=== PATIENT | female | born 1985 | race Caucasian/White ===

== ENCOUNTER 2018-08-12 05:54 | Inpatient (IN) | payer OTHER, SELFPAY ==
[2018-08-09 13:32] VITALS: BMI 29.8
[2018-08-12] VITALS (20 sets, daily range): BP systolic 95–127; BP diastolic 50–78; PULSE 64–79; RESP 15–18; TEMP 36.3–36.6; O2SAT 95–100; BMI 41.5
[2018-08-12] MEDS: Lactated Ringers 1,000 ML 999 ML IV (05:55)
[2018-08-12 06:21] LABS: Absolute Lymphocyte Count 2.68 X10^3/ul (0.83-4.51); Absolute Neutrophil Count 6.1 X10^3/uL (2.0-7.7); Basophil# 0.02 X10^3/uL; Basophil% 0.2 % (0-1); Eosinophil# 0.08 X10^3/uL; Eosinophils% 0.8 % (0-5); Hematocrit 39.2 % (37-47); Hemoglobin 13.1 g/dl (12.0-15.0); Lymphocyte # 2.68 X10^3/ul (4.0); Lymphocyte % 27.9 % (19-41); Mean Corp Hgb Conc 33.4 g/gl (32-36); Mean Corpuscular Hgb 31.1 pg (27.0-32.0); Mean Corpuscular Volume 93.1 fL (81-99); Mean Platelet Vol. 9.7 fl (6.2-12.0); Monocyte# 0.72 X10^3/uL; Monocyte% 7.5 % (0-10); Neutrophil % 63.5 % (47-70); Platelet Count 267 K/mm3 (150-450); RBC Distribution Width CV 12.6 % (11.6-14.6); RBC Distribution Width SD 42.5 fl (35.1-43.9); Red Blood Count 4.21 M/mm3 (4.2-5.4); White Blood Count 9.6 K/mm3 (4.4-11.0)
[2018-08-12 06:22] LABS: POSITIVE COUNT NO; POSITIVE DIFFERENTIAL NO; POSITIVE MORPHOLOGY NO
[2018-08-12 06:26] LABS: International Normalized Ratio 0.9; Prothrombin Time (Protime)PT. 12.5 SECONDS (11.7-14.9)
[2018-08-12 06:27] LABS: Partial Thromboplast Time 28.9 Seconds (24.1-36.2)
[2018-08-12] MEDS: Lactated Ringers 1,000 ML 150 ML IV (06:45)
[2018-08-12] MEDS: Sodium Citrate/Citric Acid 30 ML UDC PO (07:11)
[2018-08-12] MEDS: Cefazolin 2 GM in 0.9% Normal Saline 100 ML IV (07:21)
[2018-08-12] MEDS: Oxytocin 30 units/NS 500 ml 30 UNITS/500 ML IV.SOLN 167 UNITS IV (07:58)
--- NOTE | 2018-08-12 08:29 | PCM.OB.CSR ---
- Problem List (1) 39 weeks gestation of Status: Acute Delivery Classification: Scheduled Final RYAN: 08/18/18 Final RYAN Source: [place] <20 weeks Gestational age: 39 Weeks and 1 Days Indications: 33yo admitted at 39 1/7wga for scheduled repeat section. Declined trial of labor. Risks, benefits, indications and alternatives were reviewed. Indications for : Repeat Elective Description of Procedure: The patient was taken to the operating room and spinal analgesia was administered. She is placed in a dorsal supine position with left lateral tilt. The perineum and abdomen were prepped and draped in sterile fashion. And the spinal was found to be adequate. A Pfannenstiel incision was made using a scalpel and brought down to incise the subcutaneous tissue and rectus fascia at the midline. Subcutaneous tissue was bluntly dissected off the fascia laterally. The fascial incision was dissected laterally and cephalad using curved Osborne scissors. The superior leaflet of the rectus fascia was grasped using Katie clamps and bluntly dissected and sharply dissected from the underlying rectus muscle. In a similar fashion the inferior rectus fascia was dissected from the underlying muscle. The rectus muscles were bluntly at the midline. The peritoneum was identified and entered [sharply]. The bladder blade was placed into the abdomen and the vesicouterine peritoneal fold identified. The fold was incised and a bladder flap created. Bladder blade was then repositioned to the abdomen. A low transverse hysterotomy was made using the [Metzenbaum scissors] to level of the membranes. The hysterotomy was extended bluntly cephalad and caudad. The membranes were then ruptured revealing clear fluid. The head was elevated and brought to the level of the hysterotomy and the delivered revealing vigorous [male] infant. The cord was doubly clamped and cut after 30-60 seconds. The infant was passed to awaiting [nursery personnel]. The placenta was [expressed] from the uterus and appeared intact on inspection. The uterus was cleared of debris. The hysterotomy was then repaired using 0 Vicryl running lock suture. A second imbricating layer was also placed for additional hemostasis. The bladder blade was removed. The anterior cul-de-sac was cleared of debris. The peritoneum and rectus muscles were reapproximated using 2-0 Vicryl running suture. The rectus fascia was closed using 1 Stratafix running suture. The subcutaneous tissue was sponge irrigated and small capillary bleeding controlled using the Bovie. The subcutaneous tissue was reapproximated using 2-0 Vicryl. The skin was closed using 4-0 Monocryl subcuticularly by the TANK BOTTOM ASSEMBLER under my supervision. A Mepilex occlusive dressing was placed over the incision. The fundus was firm. The patient was then transferred to the recovery room without complication. Sponge, instrument, and needle counts were correct ?2. Amniotic Membrane Rupture Type: Artificial Amniotic Fluid Description: Clear Placenta Disposition: [facility] Drain: Barajas to straight drain Cord Entanglement: None Nuchal Cord Compression: Without compression Cord Vessel Description: 3 Vessels Esitmated Blood Loss (ml): 500 Infant Gender: Male (1 minute): 9 (5 minute): 9 Delayed cord clamping: Yes Pre-op Antibiotic Given: Ancef 2 grams IV x1 Pt instructed on risks of surgery: Bleeding, Anesthesia Risks, Infection, Need for Future C-Sections, Injury to surrounding structure(s) including bowel and bladder Complications: None - Admit VTE Documentation VTE Present on Admission: No VTE Mechan Device Prophylaxis: SCD's VTE Pharm Prophylaxis ordered?: No
--- NOTE | 2018-08-12 08:32 | OP.PCM_ITS ---
- Problem List (1) 39 weeks gestation of Status: Acute Delivery Classification: Scheduled Final RYAN: 08/18/18 Final RYAN Source: US <20 weeks Gestational age: 39 Weeks and 1 Days Indications: 33yo admitted at 39 1/7wga for scheduled repeat section. Declined trial of labor. Risks, benefits, indications and alternatives were reviewed. Indications for : Repeat Elective Description of Procedure: The patient was taken to the operating room and spinal analgesia was administ ered. She is placed in a dorsal supine position with left lateral tilt. The perineum and abdomen were prepped and draped in sterile fashion. And the spinal was found to be adequate. A Pfannenstiel incision was made using a scalpel and brought down to incise the subcutaneous tissue and rectus fascia at the midline. Subcutaneous tissue was bluntly dissected off the fascia laterally. The fascia l incision was dissected laterally and cephalad using curved Osborne scissors. The superior leaflet of the rectus fascia was grasped using Katie clamps and bluntly dissected and sharply dissected from the underlying rectus muscle. In a similar fashion the inferior rectus fascia was dissected from the underlying muscle. The rectus muscles were bluntly at the midline. The peritoneum was identified and entered [sharply]. The bladder blade was placed into the abdomen and the vesicouterine peritoneal fold identified. The fold was incised and a bladder flap created. Bladder blade was then repositioned to the abdomen. A low transverse hysterotomy was made using the [Metzenbaum scissors] to level of the membranes. The hysterotomy was extended bluntly cephalad and caudad. The membranes were then ruptured revealing clear fluid. The head was elevated and brought to the level of the hysterotomy and the infant delivered revealing vigorous [male] infant. The cord was doubly clamped and cut after 30-60 seconds. The infant was passed to awaiting [nursery personnel]. The placenta was [expressed] from the uterus and appeared intact on inspection. The uterus was cleared of debris. The hysterotomy was then repaired using 0 Vicryl running lock suture. A second imbricating layer was also placed for additional hemostasis. The bladder blade was removed. The anterior cul-de-sac was cleared of debris. The peritoneum and rectus muscles were reapproximated using 2-0 Vicryl running suture. The rectus fascia was closed using 1 Stratafix running suture. The subcutaneous tissue was sponge irrigated and small capillary bleeding controlled using the Bovie. The subcutaneous tissue was reapproximated using 2-0 Vicryl. The skin was closed using 4-0 Monocryl subcuticularly by the INTEGRATION ENGINEER under my supervision. A Mepilex occlusive dressing was placed over the incision. The fundus was firm. The patient was then transferred to the recovery room without complication. Sponge, instrument, and needle counts were correct ?2. Amniotic Membrane Rupture Type: Artificial Amniotic Fluid Description: Clear Placenta Disposition: [facility] Drain: Barajas to straight drain Cord Entanglement: None Nuchal Cord Compression: Without compression Cord Vessel Description: 3 Vessels Esitmated Blood Loss (ml): 500 Gender: Male (1 minute): 9 (5 minute): 9 Delayed cord clamping: Yes Pre-op Antibiotic Given: Ancef 2 grams IV x1 Pt instructed on risks of surgery: Bleeding, Anesthesia Risks, Infection, Need for Future C-Sections, Injury to surrounding structure(s) including bowel and bladder Complications: None - Admit VTE Documentation VTE Present on Admission: No VTE Mechan Device Prophylaxis: SCD's VTE Pharm Prophylaxis ordered?: No
--- NOTE | 2018-08-12 09:49 | NURSING ---
Pt. recovery going well, vital signs remain stable and pt. has no n/o nausea or pain at this time. Nursed and is continuing skin to skin.
--- NOTE | 2018-08-12 10:55 | NURSING ---
Pt. off recovery. Vitals signs remained stable, fundus firm and 1 below umbilicus. EKG stickers removed and BP cuff placed on rail of bed. Pt. denies further needs at this time.
[2018-08-12] MEDS: Prenatal Vits Tablet 1 TABLET PO (13:03)
[2018-08-12] MEDS: Lactated Ringers 1,000 ML 100 ML IV (14:04)
[2018-08-12] MEDS: Ketorolac 30 MG/ML Syringe IV ×2 (15:10→21:11)
[2018-08-12] MEDS: Senna/Docusate Sodium 1 Tablet PO (17:09)
[2018-08-12] MEDS: Acetaminophen 500 MG Tablet 1000 MG PO (17:09)
[2018-08-13] VITALS (7 sets, daily range): BP systolic 93–120; BP diastolic 43–65; PULSE 69–82; RESP 16–18; TEMP 36.5–36.7; O2SAT 96–100
[2018-08-13] MEDS: Lactated Ringers 1,000 ML 100 ML IV
[2018-08-13] MEDS: Ketorolac 30 MG/ML Syringe IV ×2 (03:23→08:57)
[2018-08-13 06:20] LABS: Hematocrit 33.7 % (37-47); Hemoglobin 11.2 g/dl (12.0-15.0); Mean Corp Hgb Conc 33.2 g/gl (32-36); Mean Corpuscular Hgb 31.9 pg (27.0-32.0); Mean Platelet Vol. 9.2 fl (6.2-12.0); Platelet Count 214 K/mm3 (150-450); RBC Distribution Width CV 12.5 % (11.6-14.6); RBC Distribution Width SD 42.2 fl (35.1-43.9); Red Blood Count 3.51 M/mm3 (4.2-5.4); White Blood Count 9.4 K/mm3 (4.4-11.0)
[2018-08-13 06:24] LABS: Scan Indicated on CBC? Y/N NO
[2018-08-13] MEDS: Senna/Docusate Sodium 1 Tablet PO (07:41)
--- NOTE | 2018-08-13 08:28 | PCM.PN.OB ---
Patient Problems: Active and Suspected Problems 39 weeks gestation of (Acute) Subjective: POD#1 C section Doing well with nursing. Pain control adequate. Has some questions about dressing and incision care. IV to S/L for continued Toradol. Barajas removed. SCDs off. - Physical Exam General: Alert, Oriented x3, Cooperative, No apparent distress HEENT: Atraumatic Neck: Supple Abdomen: Soft - Fundus firm NT approx 1 cm inferior to umbilicus Skin: Incision - Mepilex dressing CDI. no shadow drainage Neurological: Cranial nerves II-XII grossly intact Psych/Mental Status: Normal Affect Vital Signs Temp Pulse Resp BP Pulse Ox 97.7 F L 69 16 107/64 100 08/13/18 07:32 08/13/18 07:32 08/13/18 07:32 08/13/18 07:32 08/13/18 07:32 Oxygen Delivery Method Room Air Weight: 85.5 kg Body Mass Index (BMI) 41.5 Intake and Output for Last 24 Hours 08/11/18 08/12/18 08/13/18 23:59 23:59 23:59 Intake Total 3233 / 3233 Output Total 2900 / 2900 800 / 800 Balance 333 / 333 -800 / -800 Laboratory Tests Past 24 Hrs 08/13/18 06:10 WBC 9.4 RBC 3.51 L Hgb 11.2 L Hct 33.7 L MCV 96.0 MCH 31.9 MCHC 33.2 RDW 12.5 RDW Differential 42.2 Plt Count 214 MPV 9.2 Medical Necessity - Tobacco Use Smoking Status: Never smoker Assessment/Plan All Active Problems 39 weeks gestation of (Acute) POD#1 C section Stable postop. Inc diet and activity as tolerated. Begin po meds, continue Toradol q 6 hr today. May shower. Reviewed incision care, when to remove dressing. Continue care.
[2018-08-13] MEDS: Prenatal Vits Tablet 1 TABLET PO (08:57)
[2018-08-13] MEDS: oxyCODONE 5 MG Tablet PO ×3 (12:19→23:21)
[2018-08-13] MEDS: Naproxen 250 MG Tablet PO (15:13)
[2018-08-14 02:54] VITALS: BP 107/59; PULSE 72; RESP 16; TEMP 36.2; O2SAT 97
[2018-08-14] MEDS: Naproxen 250 MG Tablet PO (03:00)
[2018-08-14 08:05] VITALS: BP 103/57; PULSE 74; RESP 16; TEMP 36.7; O2SAT 99
--- NOTE | 2018-08-14 08:39 | PCM.PN.OB ---
Patient Problems: Active and Suspected Problems 39 weeks gestation of (Acute) Subjective: POD#2 Repeat C/S at 39 wk EGA Doing well. Nursing Milk coming in. Has questions re incision care, when ok to take bath. Pain control adequate. No other concerns voiced. Would like to go home today. Objective: Lying semirecumbent in bed. Nursing baby - Physical Exam General: Alert, Oriented x3, Cooperative, No apparent distress HEENT: Atraumatic Abdomen: Soft - Firm fundus, NT, at 2-3 cm inferior to umbilicus Skin: Incision - Mepilex CDI. Psych/Mental Status: Normal Affect Vital Signs Temp Pulse Resp BP Pulse Ox 98.0 F 74 16 103/57 L 99 08/14/18 08:05 08/14/18 08:05 08/14/18 08:05 08/14/18 08:05 08/14/18 08:05 Oxygen Delivery Method Room Air Weight: 85.5 kg Body Mass Index (BMI) 41.5 Intake and Output for Last 24 Hours 08/12/18 08/13/18 08/14/18 23:59 23:59 23:59 Intake Total 3233 / 3233 Output Total 2900 / 2900 1820 / 1820 Balance 333 / 333 -1820 / -1820 Medical Necessity - Tobacco Use Smoking Status: Never smoker Assessment/Plan All Active Problems 39 weeks gestation of (Acute) POD#2 C section Stable postop. D/c home today. RTO in 2 wk for postop incision check.
--- NOTE | 2018-08-14 08:43 | PCM.DCCSEC ---
Discharge Diet: No Restrictions Discharge Activity: May Shower - OK to take bath in 1 wks Return to work on:: 09/26/18 May resume sexual activity in: 4-6 weeks Lifting Restrictions: 20 pounds Additional Activity Instructions:: Nothing in the vagina for 4-6 weeks. You may return to work/school in 6 weeks. Change Dressing in (Days):: 4 Remove Dressing in (days):: 4 Cleanse incision/area with: Soap & Water, Keep Dressing Clean & Dry Additional Instructions: If you experience any of the following, contact your healthcare provider. Bleeding that soaks a pad every hour for 2 hours Fever 100.4 or higher Unrelieved incision or abdominal pain Swelling, redness, discharge or bleeding from your incision Problems urinating (including inability to urinate or burning while urinating). Visual changes Severe headache Flu-like symptoms Pain or redness in one of both of your breasts Pain, warmth, tenderness or swelling in your legs, especially the calf area Frequent nausea and vomiting Symptoms of depression or anxiety If you experience any of the following, call 911 or go to the nearest Emergency Room. Chest pain Problems breathing Seizure activity Partial or complete paralysis of a body part, slurred speech, weakness or drooping of the face, or a sudden inability to walk or hold your balance Allergies/Adverse Reactions: Allergies wheat Adverse Reaction (Verified 08/12/18 06:13) Food Allergy Medications to take at Discharge Vits96/Iron Fum/Folic [ Tablet] 1 tab PO DAILY 08/09/18 Acetaminophen [Tylenol] 1,000 mg PO Q8H PRN tablet 08/14/18 Naproxen [Naprosyn] 250 - 500 mg PO Q8H PRN #30 tab 08/14/18 Oxycodone [Oxyir] 5 - 10 mg PO Q4H PRN PRN 7 Days #20 tab 08/14/18 Senna/Docusate Sodium [Senokot-S] 1 - 2 tab PO DAILY PRN #30 tab 08/14/18 The following prescriptions were given: Oxycodone [Oxyir] 5 - 10 mg PO Q4H PRN PRN 7 Days #20 tab PRN Reason: Mod-Severe Pain (-08/31) Naproxen [Naprosyn] 250 - 500 mg PO Q8H PRN #30 tab PRN Reason: Mild Pain (-01/29) Senna/Docusate Sodium [Senokot-S] 1 - 2 tab PO DAILY PRN #30 tab PRN Reason: Constipation Follow-Up: Call to make an appointment with your doctor for an incision check in 1-2 weeks. You will also need a 6 week post- follow up appointment. Test results from this visit will be discussed in further detail at your follow-up appointment, if applicable. Please Follow Up With: Kim Clayton MD - [phone] When: Call to make an appointment for an incision check in 2 weeks. Primary Care Physician: Care Physician,No Primary [Primary Care Provider] - Proposed Discharge Date: 08/14/18
--- NOTE | 2018-08-14 08:47 | DCINST_ITS ---
Discharge Diet: No Restrictions Discharge Activity: May Shower - OK to take bath in 1 wks Return to work on:: 09/26/18 May resume sexual activity in: 4-6 weeks Lifting Restrictions: 20 pounds Additional Activity Instructions:: Nothing in the vagina for 4-6 weeks. You may return to work/school in 6 weeks. Change Dressing in (Days):: 4 Remove Dressing in (days):: 4 Cleanse incision/area with: Soap & Water, Keep Dressing Clean & Dry Additional Instructions: If you experience any of the following, contact your healthcare provider. * Bleeding that soaks a pad every hour for 2 hours * Fever 100.4 or higher * Unrelieved incision or abdominal pain * Swelling, redness, discharge or bleeding from your incision * Problems urinating (including inability to urinate or burning while urinating) . * Visual changes * Severe headache * Flu-like symptoms * Pain or redness in one of both of your breasts * Pain, warmth, tenderness or swelling in your legs, especially the calf area * Frequent nausea and vomiting * Symptoms of depression or anxiety If you experience any of the following, call 911 or go to the nearest Emergency Room. * Chest pain * Problems breathing * Seizure activity * Partial or complete paralysis of a body part, slurred speech, weakness or drooping of the face, or a sudden inability to walk or hold your balance Allergies/Adverse Reactions: Allergies wheat Adverse Reaction (Verified 08/12/18 06:13) Food Allergy Medications to take at Discharge Vits96/Iron Fum/Folic [ Tablet] 1 tab PO DAILY 08/09/18 Acetaminophen [Tylenol] 1,000 mg PO Q8H PRN tablet 08/14/18 Naproxen [Naprosyn] 250 - 500 mg PO Q8H PRN #30 tab 08/14/18 Oxycodone [Oxyir] 5 - 10 mg PO Q4H PRN PRN 7 Days #20 tab 08/14/18 Senna/Docusate Sodium [Senokot-S] 1 - 2 tab PO DAILY PRN #30 tab 08/14/18 The following prescriptions were given: Oxycodone [Oxyir] 5 - 10 mg PO Q4H PRN PRN 7 Days #20 tab PRN Reason: Mod-Severe Pain () Naproxen [Naprosyn] 250 - 500 mg PO Q8H PRN #30 tab PRN Reason: Mild Pain (-01/29) Senna/Docusate Sodium [Senokot-S] 1 - 2 tab PO DAILY PRN #30 tab PRN Reason: Constipation Follow-Up: Call to make an appointment with your doctor for an incision check in 1-2 weeks. You will also need a 6 week post- follow up appointment. Test results from this visit will be discussed in further detail at your follow- up appointment, if applicable. Please Follow Up With: Kim Clayton MD - [phone] When: Call to make an appointment for an incision check in 2 weeks. Primary Care Physician: Care Physician,No Primary [Primary Care Provider] - Proposed Discharge Date: 08/14/18
--- NOTE | 2018-08-14 08:47 | PCM.DC.SUM ---
Discharge Date and Diagnosis - Problem List Patient Problems: Active and Suspected Problems 39 weeks gestation of (Acute) Date of Admission: 08/12/18 - repeat C/S at 39 wk EGA Date of Discharge: 08/14/18 - Primary Discharge Diagnosis Active and Suspected Problems 39 weeks gestation of (Acute) Hospital Course and Treatment Operations: - - Repeat C section at 39 wks EGA Summary of Care Provided: The patient is a 33 year old female who presents for repeat C/S. Procedure performed without complication Delivered a singletone viable male Ap 07/31. Preoperative Hgb 13.1 g/dl, postoperative Hgb 11.2 g/dl. AVSS well. Milk coming in. Exam benign with uterus firm NT at inferior to umbilicus. Incision CDI. Pain control adequate. Requests dischg home on POD#2. Discharge Diet: No Restrictions Discharge Activity: May Shower - OK to take bath in 1 wks Return to work on:: 09/26/18 May resume sexual activity in: 4-6 weeks Additional Activity Instructions:: Nothing in the vagina for 4-6 weeks. You may return to work/school in 6 weeks. Change Dressing in (Days):: 4 Remove Dressing in (days):: 4 Cleanse incision/area with: Soap & Water, Keep Dressing Clean & Dry Home Medications: Medications to take at Discharge Vits96/Iron Fum/Folic [ Tablet] 1 tab PO DAILY 08/09/18 Acetaminophen [Tylenol] 1,000 mg PO Q8H PRN tablet 08/14/18 Naproxen [Naprosyn] 250 - 500 mg PO Q8H PRN #30 tab 08/14/18 Oxycodone [Oxyir] 5 - 10 mg PO Q4H PRN PRN 7 Days #20 tab 08/14/18 Senna/Docusate Sodium [Senokot-S] 1 - 2 tab PO DAILY PRN #30 tab 08/14/18 Following Prescrptions Were Given to Patient: Oxycodone [Oxyir] 5 - 10 mg PO Q4H PRN PRN 7 Days #20 tab PRN Reason: Mod-Severe Pain (4-10/10) Naproxen [Naprosyn] 250 - 500 mg PO Q8H PRN #30 tab PRN Reason: Mild Pain (1-3/10) Senna/Docusate Sodium [Senokot-S] 1 - 2 tab PO DAILY PRN #30 tab PRN Reason: Constipation Primary Care Physician: Care Physician,No Primary [Primary Care Provider] - Please Follow Up With: Kim Clayton MD - [phone] When: Call to make an appointment for an incision check in 2 weeks. Medical Necessity - Tobacco Use Smoking Status: Never smoker Meaningful Use Info Meaningful Use Diagnoses (Choose all that apply): None applicable
[2018-08-14] MEDS: Senna/Docusate Sodium 1 Tablet PO (10:03)
[2018-08-14] MEDS: oxyCODONE 5 MG Tablet PO (10:03)
== END 2018-08-14 10:30 | disposition home or self-care (01) | DRG 766 ==
PROVIDERS: Admitting Provider Obstetrics & Gynecology; Visit Provider Obstetrics & Gynecology
PROC: 10D00Z1 Extraction of Products of Conception, Low, Open Approach (ICD-10-PCS; CPT 59514; principal; 2018-08-12 07:15)
DX: O34.219 Maternal care for unspecified type scar from previous cesarean delivery (principal); Z3A.39 39 weeks gestation of pregnancy; Z37.0 Single live birth; O69.81X0 Labor and delivery complicated by cord around neck, without compression, not applicable or unspecified
CPT/HCPCS: 85025; 85027; 85610; 85730; 86850; 86900; 99218; J7120; 90686; G0378

== ENCOUNTER → 2018-09-22 14:30 | Outpatient (CLI) | payer OTHER, SELFPAY ==
[2018-09-22 17:21] LABS: Chlamydia Trachomatis by PCR Negative (Negative); Neisserai gonorrhoeae by PCR Negative (Negative); Probe Check PASS; Sample Adequacy Control PASS; Specimen Processing Control PASS
== END ==
PROVIDERS: Visit Provider Obstetrics & Gynecology
DX: Z11.3 Encounter for screening for infections with a predominantly sexual mode of transmission (principal)
CPT/HCPCS: 87491; 87591

== ENCOUNTER → 2024-04-05 | Outpatient (CLI) | payer OTHER, SELFPAY ==
[2024-04-05 13:01] LABS: Absolute Lymphocyte Count 1.43 X10^3/uL (0.83-4.51); Absolute Neutrophil Count 3.8 X10^3/uL (2.0-7.7); Basophil# 0.02 X10^3/uL; Basophil% 0.4 % (0-1); Eosinophil# 0.01 X10^3/uL; Eosinophils% 0.2 % (0-5); Hematocrit 44.4 % (37-47); Hemoglobin 14.7 g/dL (12.0-15.0); Lymphocyte # 1.43 X10^3/ul (0.83-4.51); Lymphocyte % 25.7 % (19-41); Mean Corp Hgb Conc 33.1 g/dL (32-36); Mean Corpuscular Hgb 31.1 pg (27.0-32.0); Mean Corpuscular Volume 94.1 fL (81-99); Mean Platelet Vol. 9.1 fl (6.2-12.0); Monocyte# 0.27 X10^3/uL; Monocyte% 4.9 % (0-10); NRBC Flagged by Analyzer 0 % (0-5); Neutrophil # 3.82 X10^3/uL (2.7-7.7); Neutrophil % 68.6 % (47-70); Platelet Count 330 K/mm3 (150-450); RBC Distribution Width SD 42.3 fl (35.1-43.9); Red Blood Count 4.72 M/mm3 (4.2-5.4); White Blood Count 5.6 K/mm3 (4.4-11.0)
[2024-04-05 13:24] LABS: Hemoglobin A1c 4.9 % (3.8-5.6)
[2024-04-05 13:30] LABS: Vitamin B12 680 pg/mL (211-911)
[2024-04-05 13:46] LABS: ALB/GLOB Ratio 1.5 RATIO (0.9-2.4); AST(SGOT) 13 U/L (15-37); Alanine Aminotransfer ALT/SGPT 14 U/L (13-56); Albumin, Serum 4.9 g/dL (3.2-5.0); Alkaline Phosphatase 43 U/L (45-117); Anion Gap 5 (5-15); BUN 9 mg/dL (7-18); BUN/Creat Ratio 10.3 RATIO (10-20); Calcium,Total 9.5 mg/dL (8.5-10.1); Chloride 106 mmol/L (98-107); Creatinine, Serum 0.88 mg/dL (0.55-1.02); EST Glomerular Filtration Rate 77 mL/min (>60); Est Glom Filt Rate - Afr Amer 93 mL/min (>60); Globulin 3.2 g/dL (2.2-4.2); Glucose 96 mg/dL (74-106); Iron 137 ug/dL (50-170); Iron Binding Capacity,Total 439 ug/dL (250-450); PERCENT IRON SATURATION 31.2 % (15.0-55.0); Protein, Total 8.1 g/dL (6.4-8.2); Sodium Level 136 mmol/L (136-145)
[2024-04-10 12:08] LABS: Vitamin D 1,25-Dihydroxy 72.4 pg/mL (24.8-81.5)
== END | disposition home or self-care (01) ==
LOC: LAB 12:18
PROVIDERS: PCP Nurse Practitioner Family; Referring Provider Nurse Practitioner Family; Visit Provider Nurse Practitioner Family
DX: Z00.00 Encounter for general adult medical examination without abnormal findings (principal); E66.9 Obesity, unspecified; E56.9 Vitamin deficiency, unspecified; K90.0 Celiac disease
CPT/HCPCS: 36415; 80053; 82607; 82652; 83036; 83540; 83550; 84443; 85025